=== PATIENT | male | born 1995 | race Caucasian/White ===

== ENCOUNTER 2023-10-23 20:25 | Emergency (ER) | payer SELFPAY ==
[~2023-10-23] VITALS: Ht 160 cm; Wt 59.1 kg
[2023-10-23 20:46] VITALS: TEMP 98.2
[2023-10-23] MEDS: KETOROLAC TROMETHAMINE 30 MG/ML VIAL IM ONE (22:27)
[2023-10-23] MEDS: LIDOCAINE 5% TRANSDERMAL PATCH TD ONE (22:27)
[2023-10-23 23:09] VITALS: BP 125/73; PULSE 76; RESP 18; O2SAT 99
== END 2023-10-23 23:11 ==
LOC: EMS 20:25
DX: S46.811A Strain of other muscles, fascia and tendons at shoulder and upper arm level, right arm, initial encounter (principal); J45.909 Unspecified asthma, uncomplicated; F15.10 Other stimulant abuse, uncomplicated; W22.8XXA Striking against or struck by other objects, initial encounter; Y93.89 Activity, other specified; Y92.89 Other specified places as the place of occurrence of the external cause; Y99.8 Other external cause status
CPT/HCPCS: 99285; 72125; 73030; 96372; J1885